=== PATIENT | female | born 1960 | race Caucasian/White ===

== ENCOUNTER 2019-07-26 09:20 | Emergency (ER) | payer OTHER ==
[~2019-07-26] VITALS: Ht 162.6 cm; Wt 97.5 kg
[2019-07-26 09:23] VITALS: Ht 162.6 cm; Wt 97.5 kg
[2019-07-26 09:50] VITALS: BP 125/59
== END 2019-07-26 09:50 | disposition home or self-care (01) ==
LOC: ED 09:20
DX: M62.830 Muscle spasm of back (principal); F41.9 Anxiety disorder, unspecified; M19.90 Unspecified osteoarthritis, unspecified site; Z88.0 Allergy status to penicillin